=== PATIENT | female | born 1945 | race Caucasian/White ===

== ENCOUNTER 2019-06-02 09:41 | Outpatient (CLI) | payer OTHER | END 2019-06-02 09:46 | disposition home or self-care (01) | LOC: SONOGRAMA 09:41 | DX: E04.2 Nontoxic multinodular goiter (principal) ==

== ENCOUNTER 2019-08-11 09:34 | Outpatient (CLI) | payer OTHER | END 2019-08-11 10:00 | disposition home or self-care (01) | LOC: SONOGRAMA 09:34 | DX: E04.1 Nontoxic single thyroid nodule (principal) ==

== ENCOUNTER 2021-08-11 09:00 | Inpatient (IN) | payer OTHER ==
[~2021-08-11] VITALS: Ht 152.4 cm; Wt 66.7 kg
[2021-08-11] MEDS ORDERED: SYNTHROID100 MCG PO (10:12)
[2021-08-11] MEDS ORDERED: TENORMIN25 MG PO (10:12)
[2021-08-11] MEDS ORDERED: COZAAR25 MG PO (10:13)
[2021-08-11] MEDS ORDERED: VYTORIN 10-401 EACH PO (10:13)
[2021-08-11] MEDS ORDERED: ZEGERID 40 MG1 EACH PO (10:14)
[2021-08-18] MEDS ORDERED: CIPRO500 MG PO (16:32)
[2021-08-18] MEDS ORDERED: ELIQUIS2.5 MG PO (16:32)
[2021-08-18] MEDS ORDERED: PERCOCET 5-3251 EACH PO (16:32)
== END 2021-08-18 17:23 | disposition home or self-care (01) | DRG 470 ==
LOC: O/R 08-16 06:30 → SURG 08-16 06:30 → SURH 08-16 07:00 → SURG 08-16 12:33
PROVIDERS: ADMIT Orthopaedic Surgery; ATTEND Orthopaedic Surgery
PROC: 0SRC0J9 Replacement of Right Knee Joint with Synthetic Substitute, Cemented, Open Approach (ICD-10-PCS; principal; 2021-08-16 07:00)
DX: M17.11 Unilateral primary osteoarthritis, right knee (principal); D62 Acute posthemorrhagic anemia; M11.261 Other chondrocalcinosis, right knee; D21.21 Benign neoplasm of connective and other soft tissue of right lower limb, including hip; M81.0 Age-related osteoporosis without current pathological fracture; M22.11 Recurrent subluxation of patella, right knee; I10 Essential (primary) hypertension; E66.9 Obesity, unspecified; E78.00 Pure hypercholesterolemia, unspecified; I87.2 Venous insufficiency (chronic) (peripheral)